=== PATIENT | male | born 1950 | race Caucasian/White ===

== ENCOUNTER 2023-08-17 05:24 | Day surgery (SDC) | payer MEDICARE, OTHER, SELFPAY ==
--- NOTE | 2023-08-08 09:10 | EKG12_ITS ---
Test Reason : PRE-OP Blood Pressure : / mmHG Vent. Rate : 063 BPM Atrial Rate : 063 BPM P-R Int : 232 ms QRS Dur : 082 ms QT Int : 408 ms P-R-T Axes : 000 070 054 degrees QTc Int : 417 ms Sinus rhythm with 1st degree A-V block with occasional Premature ventricular complexes Otherwise normal ECG Confirmed by ANJEL DE LA TORRE, IRMA ([id number]), editor department MEKA CASPER ([id number]) on 08/09/2023 11:24:17 AM Referred By: Dwain Felix Confirmed By:IRMA HOBBS MD
[2023-08-17] VITALS (8 sets, daily range): BP systolic 95–141; BP diastolic 64–92; PULSE 51–57; RESP 16–18; TEMP 35.9–36.6; O2SAT 92–98; BMI 27.8
[2023-08-17] MEDS: Lactated Ringers 1,000 ML 15 ML IV (06:23)
[2023-08-17 06:26] LABS: Absolute Lymphocyte Count 2.74 X10^3/uL (0.83-4.51); Absolute Neutrophil Count 5.4 X10^3/uL (2.0-7.7); Basophil# 0.09 X10^3/uL; Eosinophil# 0.06 X10^3/uL; Eosinophils% 0.7 % (0-5); Hematocrit 49.4 % (40-54); Hemoglobin 16.2 g/dL (13.0-16.5); Lymphocyte # 2.74 X10^3/ul (0.83-4.51); Lymphocyte % 30.4 % (19-41); Mean Corp Hgb Conc 32.8 g/dL (32-36); Mean Corpuscular Hgb 30.3 pg (27.0-32.0); Mean Corpuscular Volume 92.3 fL (80-94); Mean Platelet Vol. 9.9 fl (6.2-12.0); Monocyte# 0.73 X10^3/uL; Monocyte% 8.1 % (0-10); NRBC Flagged by Analyzer 0 % (0-5); Neutrophil # 5.38 X10^3/uL (2.7-7.7); Neutrophil % 59.6 % (47-70); Platelet Count 191 K/mm3 (150-450); RBC Distribution Width CV 12.3 % (11.6-14.6); RBC Distribution Width SD 41.9 fl (35.1-43.9); Red Blood Count 5.35 M/mm3 (4.6-6.2)
[2023-08-17 06:44] LABS: Anion Gap 5 (5-15); BUN 15 mg/dL (7-18); BUN/Creat Ratio 17.9 RATIO (10-20); Calcium,Total 9.5 mg/dL (8.5-10.1); Chloride 109 mmol/L (98-107); Creatinine, Serum 0.84 mg/dL (0.70-1.30); EST Glomerular Filtration Rate 95 mL/min (>60); Est Glom Filt Rate - Afr Amer 115 mL/min (>60); Estimated Creatinine Clearance 84.68 ml/min; Glucose 125 mg/dL (74-106); Potassium 3.8 mmol/L (3.5-5.1); Sodium Level 139 mmol/L (136-145)
[2023-08-17] MEDS: Cefazolin 2 GM in 0.9% Normal Saline (100mL Bag) 100 ML IV (07:30)
[2023-08-17] MEDS: Epinephrine (1 mg/ml) 1 MG/ML VIAL (07:30)
[2023-08-17] MEDS: Bupivacaine Mpf 0.5% 30 ML VIAL (09:23)
--- NOTE | 2023-08-17 09:49 | OP.PCM_ITS ---
Report of Operation Date of Procedure: 08/17/23
--- NOTE | 2023-08-17 09:49 | PCM.OPRPT ---
Report of Operation Date of Procedure: 08/17/23 Description of Surgical Findings:: Preoperative diagnosis: 1. Left shoulder rotator cuff tear 2. Left shoulder subacromial impingement syndrome 3. Left shoulder SLAP tear 4. Symptomatic left acromioclavicular joint osteoarthritis 5. 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 Left shoulder rotator cuff tear 2. Left shoulder subacromial impingement syndrome 3. Left shoulder SLAP tear 4. Symptomatic left acromioclavicular joint osteoarthritis 5. 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 Left shoulder arthroscopic rotator cuff repair 2. Left shoulder arthroscopic subacromial decompression 3. Left shoulder arthroscopic distal clavicle excision 4. Left shoulder mini open subpectoral biceps tenodesis Surgeon: Dwain Felix DO [employer]rig[employer] Worker: Bethany Campbell PA-C Anesthesia: General LMA with interscalene block Coverer: Reilly Gipson CRNA Estimated blood loss: 5 cc IV fluids: Per anesthesia record Urine output: None recorded Packing/drains: None Implants: Arthrex 4.75 mm bio composite swivel lock anchor, Arthrex metallic biceps button Preoperative indications: This is a active 73-year-old male seen in the outpatient setting with left shoulder pain. He had profound weakness in his subscapularis. MRI demonstrated a full-thickness retracted tear of the subscapularis. Biceps tendon instability was also noted. He also had findings of subacromial pigeon syndrome, symptomatic AC joint arthrosis. SLAP tear was also suspected. I recommend surgical intervention in the form of left shoulder arthroscopic rotator cuff repair, subacromial decompression, distal clavicle excision, mini open long head biceps tenodesis. Informed consent was obtained in the outpatient setting. Risks, benefits, terms the procedure reviewed with the patient at length and he agreed to proceed. Risk included but were not limited to bleeding, infection, loss of life or limb, need for additional surgery, persistent pain, nonhealing tendon or wounds, stiffness, neurovascular injury, DVT or PE. Patient expressed understanding of these risks and wished to proceed with surgery. Description of procedure: Patient was identified in preoperative holding area by name, medical record number, and date of . The operative extremity was marked. All questions were answered to the patient's satisfaction. An interscalene block was administered by anesthesia prior to the procedure. Patient was then brought to the operative suite at time of his procedure. He was positioned supine a sterile operating table. General anesthesia was induced and LMA was placed. Patient was then placed in lateral decubitus position with the left side up. A beanbag was used to hold the patient in the lateral decubitus position. An axillary roll was placed. Pillows were placed beneath and between his legs to for any bony prominences. We prepped and draped the right upper extremity in normal, sterile orthopedic fashion. The operative extremity was placed in traction utilizing arthroscopic bedroom with 15 pounds of tension applied to the operative extremity throughout the arthroscopic portion of the case. We performed a timeout with all parties in attendance in agreement with the side, site, and operation be performed. No concerns were voiced and we elected to proceed with surgery. 2 g Ancef was administered IV prior to incision by anesthesia staff. I first established a standard posterior portal 2 fingerbreadths inferior medial to the posterior lateral border of the scapular spine. Blunt tipped trocar and arthroscopic cannula was introduced into the glenohumeral joint. Joint was inflated with normal saline with epinephrine. Arthroscope was then introduced. Diagnostic arthroscopy was commenced. Full-thickness retracted tear of the subscapularis was noted. 3 sided release was then performed after an anterior interval portal was established. Accessory anterior superior lateral portal was established for suture management. Type II SLAP tear was noted with long head biceps tendon dislocation medial to the lesser tuberosity. Arthroscopic cautery was used to perform a biceps tenotomy at the biceps labral junction. The biceps was allowed to retract into the groove. Superior labrum was then debrided to a stable rim. I then placed a traction stitch within the upper third of the subscapularis with a fiber link suture. This was passed with a scorpion suture passer. Traction was applied to the subscapularis and continued release was performed with arthroscopic cautery and shaver. I medialized the footprint of the subscapularis approximately 5 mm. An additional fiber link suture was placed approximately 1 cm inferior to the traction suture. These were passed through the eyelet of a swivel lock anchor. Punch was placed in our slightly medialized footprint and anchor placed with excellent cortical purchase after tensioning of the suture. There was good reapproximation and return of normal tension of the subscapularis. Articular sided fraying was noted of the supraspinatus which was debrided with a radial resector. I then turned my attention to the subacromial space. Arthroscopic instruments were removed. I reentered the shoulder in the subacromial space with blunt tipped trocar. Standard lateral portal was established with an 11 blade scalpel. I then skeletonized the undersurface of the acromion. A prominent downsloping spur from the anterior lateral surface of the acromion was identified. Acromioplasty was performed with the arthroscopic bur removing the spur. Subacromial bursectomy was performed. The bursal side of the supraspinatus appeared pristine. AC joint was then exposed and the anterior and inferior aspects of the capsule was released with cautery. Distal clavicle excision was performed in standard fashion with a bur removing approximately 8 mm distal clavicle. I then thoroughly lavaged the subacromial space. Arthroscopic instruments were removed. Portal sites were closed in standard fashion with a [id number] 3-0 nylon suture. I then took the arm out of traction. An oblique incision along the inferior aspect of the pectoralis major was made in the anterior upper arm. 2 cm skin incision was made. Superficial bleeders were cauterized. Blunt dissection was carried down to the level of the fascia. The fascia was opened just inferior to the pectoralis major tendon. Hohmann retractors were placed laterally and medially retracting the pectoralis major and short of the biceps tendon respectively. Long head biceps tendon was retrieved out of the wound. Significant tendinosis and tenosynovitis was noted at the level of the groove. Whipstitch was then performed at the musculotendinous junction with #2 FiberWire. The intercalary portion of the biceps tendon was then excised. Sutures were then placed alternating through a biceps button. Periosteum was elevated at the subpectoral region of the anterior humerus. I drilled unit cortically for an onlay tenodesis. Button was then placed in the intramedullary canal. Sutures were tensioned and tied. A limb of suture was passed back through the tendon for additional fixation and tied. Sutures were cut. Wound was copiously irrigated with normal saline solution. A field block was administered with 20 cc total 0.5% bupivacaine. This incision was closed in layers with interrupted buried 3-0 Vicryl suture. Skin was finally reapproximated with subcuticular 4-0 Monocryl and skin glue. Bulky sterile compression dressing was applied. Patient was placed in UltraSling. He tolerated the procedure well without apparent complication. He was safely awoken the operative suite and extubated. He was transferred to his gurney and subsequently to PACU in stable condition. Need for skilled hardware sales assistant: Bethany Campbell PA-C was critical to the outcome of the case. During the course of the procedure the physician hardware sales assistant played a vital role. Her intimate knowledge of my steps in the procedure aided in safe and expedient completion of the procedure. The PA played a vital role in positioning particularly in obtaining the appropriate positioning. The PA was also vital in the retraction of soft tissues during the exposure and protecting vital structures. The PA was also vital and obtaining tendon reduction and assisting with hardware placement. She also played a vital role in closure and sling application with my direct supervision. Post Operative Plan: Weightbearing: Nonweightbearing left upper extremity, okay for pendulums. Range of motion of wrist elbow and hand as tolerated. Antibiotics: 2 g Ancef IV prior to incision DVT Prophylaxis: Aspirin enteric-coated 81 mg twice daily starting tomorrow Summers: None Dressing: Maintain dressing x 2 days then ok to shower X-Rays: None Pain Medication: Oxycodone Rx upon discharge Follow-up: 2 weeks post-operatively with me in the office
== END 2023-08-17 11:16 | disposition home or self-care (01) ==
LOC: SDC 05:24 → AC 05:25
PROVIDERS: PCP Nurse Practitioner Family; Referring Provider Student in an Organized Health Care Education/Training Program; Visit Provider Student in an Organized Health Care Education/Training Program
PROC: (CPT 29827; principal; 2023-08-17 07:10)
DX: S46.012A Strain of muscle(s) and tendon(s) of the rotator cuff of left shoulder, initial encounter (principal); S43.432A Superior glenoid labrum lesion of left shoulder, initial encounter; M19.012 Primary osteoarthritis, left shoulder; M25.312 Other instability, left shoulder; M75.42 Impingement syndrome of left shoulder; W19.XXXA Unspecified fall, initial encounter; I10 Essential (primary) hypertension; E78.00 Pure hypercholesterolemia, unspecified; Z79.899 Other long term (current) drug therapy
CPT/HCPCS: 29826; 29824; 23430; 29827; 64415; 80048; 85025; 93005; J7120; J2405